=== PATIENT | female | born 1985 | race Caucasian/White ===

== ENCOUNTER → 2018-07-16 13:20 | Outpatient (CLI) | payer OTHER, SELFPAY ==
[2018-07-09 09:33] VITALS: BMI 25.7
--- NOTE | 2018-07-16 13:22 | US_ITS ---
STUDY: ULTRASOUND OF THE FEMALE PELVIS - COMPLETE REASON FOR EXAM: Female, 32 years old. Menorrhagia. LMP: June 27, 2018 TECHNIQUE: Transabdominal and Transvaginal TECHNICAL QUALITY: Adequate. COMPARISON: None. FINDINGS: The uterus is anteverted and is in a midline position. The uterus measures 9.3 x 5.4 x 4.9 cm. There is a Nabothian cyst of the cervix. The endometrium measures 16.0 mm in thickness, and is hyperechoic. There is no demonstrated endometrial mass. There is no demonstrated myometrial mass. I.U.D. - The patient does not have an I.U.D. The right ovary is visualized. The right ovary measures 2.4 x 2.6 x 1.9 cm. There is no right ovarian cyst or ovarian mass. There is no visualized right adnexal mass or complex lesion. There is normal arterial and normal venous vascularity. The left ovary is visualized. The left ovary measures 3.4 x 2.2 x 3.2 cm. There is no left ovarian cyst or ovarian mass. There is no visualized left adnexal mass or complex lesion. There is normal arterial and normal venous vascularity. There is no fluid in the cul-de-sac. Polycystic ovary disease: No. US/Transvaginal Non- IMPRESSION: Within normal limits female pelvis. Electronically Signed: Naina Recinos MD at 22:36 EDT Tel , Service support ,
--- NOTE | 2018-07-16 13:22 | US_ITS ---
STUDY: ULTRASOUND OF THE FEMALE PELVIS - COMPLETE REASON FOR EXAM: Female, 32 years old. Menorrhagia. LMP: June 27, 2018 TECHNIQUE: Transabdominal and Transvaginal TECHNICAL QUALITY: Adequate. COMPARISON: None. FINDINGS: The uterus is anteverted and is in a midline position. The uterus measures 9.3 x 5.4 x 4.9 cm. There is a Nabothian cyst of the cervix. The endometrium measures 16.0 mm in thickness, and is hyperechoic. There is no demonstrated endometrial mass. There is no demonstrated myometrial mass. I.U.D. - The patient does not have an I.U.D. The right ovary is visualized. The right ovary measures 2.4 x 2.6 x 1.9 cm. There is no right ovarian cyst or ovarian mass. There is no visualized right adnexal mass or complex lesion. There is normal arterial and normal venous vascularity. The left ovary is visualized. The left ovary measures 3.4 x 2.2 x 3.2 cm. There is no left ovarian cyst or ovarian mass. There is no visualized left adnexal mass or complex lesion. There is normal arterial and normal venous vascularity. There is no fluid in the cul-de-sac. Polycystic ovary disease: No. US/Pelvic (Non ) IMPRESSION: Within normal limits female pelvis. Electronically Signed: Naina Recinos MD at 22:36 EDT Tel , Service support ,
== END ==
PROVIDERS: Family Provider Physician Assistant Medical; PCP Physician Assistant Medical; Referring Provider Nurse Practitioner Women's Health; Visit Provider Nurse Practitioner Women's Health
DX: N92.1 Excessive and frequent menstruation with irregular cycle (principal)
CPT/HCPCS: 76830; 76856

== ENCOUNTER → 2018-07-18 16:33 | Outpatient (CLI) | payer OTHER, SELFPAY ==
[2018-07-09 09:33] VITALS: BMI 25.7
== END ==
PROVIDERS: Family Provider Physician Assistant Medical; PCP Physician Assistant Medical; Referring Provider Nurse Practitioner Women's Health; Visit Provider Nurse Practitioner Women's Health
DX: N92.1 Excessive and frequent menstruation with irregular cycle (principal)
CPT/HCPCS: 36415; 84144

== ENCOUNTER → 2018-07-20 09:16 | Outpatient (CLI) | payer OTHER, SELFPAY ==
[2018-07-09 09:33] VITALS: BMI 25.7
--- NOTE | 2018-07-20 09:22 | BI_ITS ---
MAMMOGRAPHY - BILATERAL DIAGNOSTIC REASON FOR EXAM: Female, 32 years old. [id number] for Procedure (BI),NO PRIOR MAMMS FM HX PAT GMA 60'S, LT INFERIOR PALPABLE LUMP MARKED WITH TRIANGLE R1 CM FOUND BY PT 2-3 MTHS AGO AND SLIGHTLY LARGER WITH TIME PERTINENT HISTORY: TECHNIQUE: Digital bilateral breast deanne (3D mammographic acquisition) in the CC and MLO projections. 2-D mediolateral oblique (MLO) and craniocaudad (CC) views of both breasts were obtained. CAD: Full Field Digital Mammography with Computer Added Detection was performed. 2 additional magnification views of the right breast were also performed. COMPARISON: None. FINDINGS: Breast Composition: The breasts are extremely dense, which lowers the sensitivity of mammography. There are scattered microcalcifications in the retroareolar region of the right breast for which magnification views were performed and demonstrate possible small suspicious clusters with linear shaped calcifications in the retroareolar region. Stereotactic biopsy is recommended. No other significant abnormalities are identified. BI/DIAG MAMM W/CAD, BILAT IMPRESSION: Findings suspicious for malignancy, as described above. Biopsy recommended. (H) ASSESSMENT CATEGORY: BIRADS Category 4: Suspicious - Biopsy Should Be Considered. A letter regarding these results will be sent to the patient by the facility within 30 days. Approximately 10% of breast cancers are not detected by mammography. A normal mammogram should not delay biopsy of a clinically suspicious abnormality. Electronically Signed: Mikaela Rivas, at 16:49 EDT Tel , Service support ,
--- NOTE | 2018-07-20 09:24 | US_ITS ---
STUDY: ULTRASOUND BREAST - LEFT REASON FOR EXAM: Female, 32 years old. LT LUMP mammo today TECHNIQUE: Axial and longitudinal images of the LEFT breast were performed with a high resolution ultrasound transducer. COMPARISON: None. FINDINGS: LEFT Breast: There is a lesion #1 in the lower inner quadrant. The lesion measures 1.1 x 0.9 x 0.5 cm in size. Clock notation: 7 o'clock position. Distance from nipple: 3 cm. Posterior Enhancement: Yes. Posterior Shadowing: None. Margins: Sharp and smooth. Echogenicity: Anechoic. Compression effect on Shape: No change. US/Breast Limited Unilateral IMPRESSION: Benign cyst in the left breast ASSESSMENT CATEGORY: BIRADS Category 2: Benign. A letter regarding these results will be sent to the patient by the facility within 30 days. Electronically Signed: Mikaela Rivas, at 16:37 EDT Tel , Service support ,
== END ==
PROVIDERS: Family Provider Physician Assistant Medical; PCP Physician Assistant Medical; Referring Provider Nurse Practitioner Women's Health; Visit Provider Nurse Practitioner Women's Health
DX: N60.02 Solitary cyst of left breast (principal)
CPT/HCPCS: 76642; 77062; 77066; G0279

== ENCOUNTER → 2018-08-23 10:12 | Outpatient (CLI) | payer OTHER, SELFPAY ==
[2018-08-03 09:31] VITALS: BMI 25.7
--- NOTE | 2018-08-23 | BRBX_PTH ---
PATIENT: JUNIOR PATEL LOC: [facility] U#:[id number] AGE/SX: 39/F ROOM: RE08/23/[address]: Dr. Kirsten Hernandez MD : 1985 BED: DIS: SPEC #: [id number] RECD: 08/23/18 14:24 STATUS: JAYDE RIVERA #: [id number] DARBY: 08/23/18 00:[address]: Kirsten Hernandez DEPT: SURGICAL PATHOLOGY RECD BY: Gopal Padron ENTERED: 08/23/18 14:25 SP TYPE: BREAST BX OTHR DR: QUINCY Campbell Tissues: A - Right breast, NOS B - Right breast, NOS Procedures: Surgery Specimen Level IV HEADER OPERATION: Right stereotactic breast biopsy PRE-OP DIAGNOSIS: Right breast retroareolar slightly lateral microcalcifications TISSUE SUBMITTED: A - Superior retroareolar area, B - Inferior retroareolar area ISCHEMIC TIME: 1 minute FIXATION TIME: 8 hours MICROSCOPIC DIAGNOSIS A. Right breast, superior retroareolar area, stereotactic core biopsy: Fibrocystic changes and intraductal hyperplasia without atypia. Negative for malignancy. Polarizable microcalcifications. B. Right breast, inferior retroareolar area, stereotactic core biopsy: Fibrocystic changes and intraductal hyperplasia without atypia. Focal chronic inflammation and histiocytic reaction. Negative for malignancy. See comment. SJ:rg 08/24/18 COMMENT B. Microcalcifications are not seen. Correlation with clinical, radiologic findings and appropriate follow up are necessary. MICROSCOPIC DESCRIPTION Slides are reviewed. GROSS DESCRIPTION A - Received in fixative is one container labeled with the patient's name and designated superior. The specimen consists of multiple elongated fragments of may-yellow fibroadipose tissue that in aggregate measure 3 x 2.5 x 0.3 cm. The entire specimen is submitted in one cassette. B - Received in fixative is one container labeled with the patient's name and designated inferior. The specimen consists of multiple elongated fragments of may-yellow fibroadipose tissue that in aggregate measure 2 x 1 x 0.1 cm. The entire specimen is submitted in one cassette. / SJ:rg 08/23/18 TC:5 CPT: 29601 ADDENDUM ADDENDUM ADDENDUM ADDENDUM ADDENDUM ADDENDUM ADDENDUM 08/28/2018 12:02 ADDENDUM 08/28/2018 12:02 ADDENDUM 08/28/2018 12:02 ADDENDUM 08/28/2018 12:02 ADDENDUM 08/28/2018 12:02 B. Right breast, inferior retroareolar area, stereotactic core biopsy: Additional ten levels are examined at the request of Dr. Hernandez and the specimen shows a few polarizable microcalcifications. This case is discussed with Dr. Hernandez on 08/27/18.
--- NOTE | 2018-08-23 12:43 | PCM.OPRPT ---
Report of Operation Date of Procedure: 08/23/18 Pre-Operative Diagnosis: Right retroareolar microcalcifications Post-Operative Diagnosis: Same Surgery/Procedure Performed:: Stereotactic right breast biopsy x2 Type of Anesthesia:: Local Specimen's removed: 1. Superior retroareolar breast tissue, 2. Inferior retroareolar breast tissue Estimated Blood Loss (mL): 10 cc Description of Procedure: Procedure: Right stereotactic core biopsy Indications: 32 year-old female with microcalcifications in the retroareolar aspect of the right breast. Due to the diffuse areas due to areas of sampling. Risk benefits were discussed the patient and she elected to proceed with stereotactic core biopsy with clip placement Description of procedure: Patient was brought into the mammography suite and laid prone on the stereotactic table. A timeout was completed verifying correct patient, procedure, site, specially, prior to beginning procedure. The right breast was prepped and draped in usual sterile fashion and using local anesthesia was obtained with 1% lidocaine. Patient's right breast was positioned and placed into compression. Both sample stereotactic breast biopsies were done similarly. Initial film showed calcifications are in the center of the compression paddle. 15? views were then taken. The calcifications were localized. An 10-gauge mammotome was set up according to the digital coordinates. The tract of the mammotome was anesthetized with local anesthesia and an incision was made with the 11 blade scalpel at the entry site. The mammotome was advanced to the prefire state. Pre-prior films were checked and verified. The mammotome was fired. Post fire films were also checked and verified. Biopsies were taken from from 1:00 to 12:00 for the superior retroareolar sample, and from 9:00 to 3:00 for the inferior retroareolar sample. The specimen was x-rayed and all the calcifications were within the specimen. Mammotome bowtie clip was placed at the 12 o'clock position, using the resolve clip for the superior retroareolar sample and the result petite barbell clip for the inferior retroareolar sample. The mammotome was removed from the breast. An additional films were taken which showed the clip was in place. Pressure was held for hemostasis. The superior retroareolar incision site was closed with 4-0 nylon interrupted suture and 3 cc of lidocaine with epinephrine was also placed in the incision due to oozing, after pressure was held for 15 minutes. Once hemostasis was assured the wound was dressed with Steri-Strips and OpSite. The patient tolerated the procedure well and was discharged from the mammography suite good condition. - Complications none
--- NOTE | 2018-08-23 12:48 | OP.PCM_ITS ---
Report of Operation Date of Procedure: 08/23/18 Pre-Operative Diagnosis: Right retroareolar microcalcifications Post-Operative Diagnosis: Same Surgery/Procedure Performed:: Stereotactic right breast biopsy x2 Type of Anesthesia:: Local Specimen's removed: 1. Superior retroareolar breast tissue, 2. Inferior retroareolar breast tissue Estimated Blood Loss (mL): 10 cc Description of Procedure: Procedure: Right stereotactic core biopsy Indications: 32 year-old female with microcalcifications in the retroareolar aspect of the right breast. Due to the diffuse areas due to areas of sampling. Risk benefits were discussed the patient and she elected to proceed with stereotactic core biopsy with clip placement Description of procedure: Patient was brought into the mammography suite and laid prone on the stereotactic table. A timeout was completed verifying correct patient, procedure, site, specially, prior to beginning procedure. The right breast was prepped and draped in usual sterile fashion and using local anesthesia was obtained with 1% lidocaine. Patient's right breast was positioned and placed into compression. Both sample stereotactic breast bio psies were done similarly. Initial film showed calcifications are in the center of the compression paddle. 15? views were then taken. The calcifications were localized. An 10-gauge mammotome was set up according to the digital coordinates. The tract of the mammotome was anesthetized with local anesthesia and an incision was made with the 11 blade scalpel at the entry site. The mammotome was advanced to the prefire state. Pre-prior films were checked and verified. The mammotome was fired. Post fire films were also checked and verified. Biopsies were taken from from 1:00 to 12:00 for the superior retroareolar sample, and from 9:00 to 3:00 for the inferior retroareolar sample. The specimen was x-rayed and all the calcifications were within the specimen. Mammotome bowtie clip was placed at the 12 o'clock position, using the resolve clip for the superior retroareolar sample and the result petite barbell clip for the inferior retroareolar sample. The mammotome was removed from the breast. An additional films were taken which showed the clip was in place. Pressure was held for hemostasis. The superior retroareolar incision site was closed with 4- 0 nylon interrupted suture and 3 cc of lidocaine with epinephrine was also placed in the incision due to oozing, after pressure was held for 15 minutes. Once hemostasis was assured the wound was dressed with Steri-Strips and OpSite. The patient tolerated the procedure well and was discharged from the mammography suite good condition. - Complications none
== END ==
PROVIDERS: Family Provider Physician Assistant Medical; PCP Physician Assistant Medical; Referring Provider Surgery; Visit Provider Surgery
DX: N60.11 Diffuse cystic mastopathy of right breast (principal); N60.91 Unspecified benign mammary dysplasia of right breast; R92.1 Mammographic calcification found on diagnostic imaging of breast
CPT/HCPCS: 19081; 19082; 88305; J7050

== ENCOUNTER → 2018-10-18 | Outpatient (CLI) | payer OTHER, SELFPAY ==
[2018-08-03 09:31] VITALS: BMI 25.7
[2018-10-19 11:58] LABS: Progesterone Level 11.63 ng/mL (See Comment)
== END | disposition home or self-care (01) ==
LOC: LAB 16:28
PROVIDERS: Family Provider Physician Assistant Medical; PCP Physician Assistant Medical; Referring Provider Nurse Practitioner Women's Health; Visit Provider Nurse Practitioner Women's Health
DX: Z31.9 Encounter for procreative management, unspecified (principal)
CPT/HCPCS: 36415; 84144

== ENCOUNTER → 2018-12-20 13:57 | Outpatient (CLI) | payer OTHER, SELFPAY ==
[2018-12-20 13:16] VITALS: BMI 26.3
[2018-12-20 14:20] LABS: Absolute Lymphocyte Count 1.62 X10^3/uL (0.83-4.51); Absolute Neutrophil Count 5.7 X10^3/uL (2.0-7.7); Basophil# 0.02 X10^3/uL; Basophil% 0.3 % (0-1); Eosinophil# 0.06 X10^3/uL; Eosinophils% 0.8 % (0-5); Hemoglobin 13.2 g/dL (12.0-15.0); Lymphocyte # 1.62 X10^3/ul (4.0); Lymphocyte % 20.5 % (19-41); Mean Corp Hgb Conc 33.8 g/dL (32-36); Mean Corpuscular Hgb 31.4 pg (27.0-32.0); Mean Corpuscular Volume 92.9 fL (81-99); Mean Platelet Vol. 10.5 fl (6.2-12.0); Monocyte# 0.46 X10^3/uL; Monocyte% 5.8 % (0-10); NRBC Flagged by Analyzer 0 % (0-5); Neutrophil # 5.72 X10^3/uL (2.7-7.7); Neutrophil % 72.5 % (47-70); Platelet Count 185 K/mm3 (150-450); RBC Distribution Width CV 12.4 % (11.6-14.6); RBC Distribution Width SD 42.3 fl (35.1-43.9); White Blood Count 7.9 K/mm3 (4.4-11.0)
[2018-12-20 18:18] LABS: Chlamydia Trachomatis by PCR Negative (Negative); Neisserai gonorrhoeae by PCR Negative (Negative); Probe Check PASS; Sample Adequacy Control PASS; Specimen Processing Control PASS
[2018-12-21 01:39] LABS: Rapid Plasmin Reagin (RPR) NONREACTIVE (NONREACTIVE)
[2018-12-21 09:05] LABS: HIV - WCH Non-Reactive (Nonreactive); Hepatitis B Surface Antigen Non-Reactive (Nonreactive); Rubella IgG 48.1 IU/mL
== END ==
PROVIDERS: Family Provider Physician Assistant Medical; PCP Physician Assistant Medical; Referring Provider Obstetrics & Gynecology; Visit Provider Obstetrics & Gynecology
DX: Z34.80 Encounter for supervision of other normal pregnancy, unspecified trimester (principal)
CPT/HCPCS: 36415; 85025; 86592; 86703; 86762; 86850; 86900; 86901; 87086; 87340; 87491; 87591

== ENCOUNTER → 2019-04-29 14:22 | Outpatient (CLI) | payer OTHER, SELFPAY ==
[2019-04-29 14:09] VITALS: BMI 25.7
[2019-04-29 15:22] LABS: Absolute Lymphocyte Count 1.68 X10^3/uL (0.83-4.51); Absolute Neutrophil Count 9.6 X10^3/uL (2.0-7.7); Basophil# 0.03 X10^3/uL; Basophil% 0.2 % (0-1); Eosinophil# 0.11 X10^3/uL; Eosinophils% 0.9 % (0-5); Hematocrit 34.1 % (37-47); Hemoglobin 11.2 g/dL (12.0-15.0); Lymphocyte # 1.68 X10^3/ul (4.0); Lymphocyte % 13.7 % (19-41); Mean Corp Hgb Conc 32.8 g/dL (32-36); Mean Corpuscular Hgb 31.8 pg (27.0-32.0); Mean Corpuscular Volume 96.9 fL (81-99); Mean Platelet Vol. 10.5 fl (6.2-12.0); Monocyte% 5.7 % (0-10); NRBC Flagged by Analyzer 0 % (0-5); Neutrophil # 9.63 X10^3/uL (2.7-7.7); Neutrophil % 78.6 % (47-70); Platelet Count 177 K/mm3 (150-450); RBC Distribution Width CV 13.4 % (11.6-14.6); Red Blood Count 3.52 M/mm3 (4.2-5.4); White Blood Count 12.3 K/mm3 (4.4-11.0)
[2019-04-29 15:23] LABS: Glucose Challenge Gest 1H 50g 118 mg/dL (70-140)
== END ==
PROVIDERS: Family Provider Physician Assistant Medical; PCP Physician Assistant Medical; Referring Provider Nurse Practitioner Women's Health; Visit Provider Nurse Practitioner Women's Health
DX: Z34.90 Encounter for supervision of normal pregnancy, unspecified, unspecified trimester (principal)
CPT/HCPCS: 36415; 82950; 85025; 86850; 86900; 86901

== ENCOUNTER → 2019-05-31 09:12 | Outpatient (CLI) | payer OTHER, SELFPAY ==
[2019-05-17 10:04] VITALS: BMI 25.7
--- NOTE | 2019-05-31 09:14 | US_ITS ---
STUDY: SECOND AND THIRD TRIMESTER OBSTETRICAL ULTRASOUND - LIMITED REASON FOR EXAM: Female, 33 years old GROWTH . Large for dates. LMP: October 28, 2018. PRIOR ULTRASOUND: None. TECHNIQUE: Transabdominal TECHNICAL QUALITY: Adequate. FINDINGS: There is a single intrauterine fetus. The fetus is in a cephalic presentation. There is demonstrated cardiac activity with a heart rate of 152 bpm. There is a normal amniotic fluid volume. The largest amniotic fluid pocket measures 5.9 cm. The amniotic fluid index (SINDY) is 19.1 cm. The placenta is posterior in location and is not low lying. There are Grade 1 placental changes. The cervix measures 4.3 cm in length. BIOMETRY: BPD: 8.0 cm: 32 weeks, 0 days HC: 29.6 cm: 32 weeks, 5 days AC: 28.3 cm: 32 weeks, 3 days FL: 6.5 cm: 33 weeks, 5 days Age by LMP: 30 weeks, 5 days. EMMANUELLE by LMP: August 04, 2019. age by current US: 32 weeks, 5 days. EMMANUELLE by current US: July 21, 2019. Estimated weight: 2030 grams, +/- 296 grams, 94 percentile. US/OB Limited With Biometrics IMPRESSION: Single live intrauterine gestation with a mean gestational age of 32 weeks and 5 days. Electronically Signed: Denys Leigh, at 8:35 EST , Service support ,
== END ==
PROVIDERS: PCP Physician Assistant Medical; Referring Provider Obstetrics & Gynecology; Visit Provider Obstetrics & Gynecology
DX: O36.60X0 Maternal care for excessive fetal growth, unspecified trimester, not applicable or unspecified (principal); Z3A.00 Weeks of gestation of pregnancy not specified
CPT/HCPCS: 76816

== ENCOUNTER → 2019-07-12 08:16 | Outpatient (CLI) | payer OTHER, SELFPAY ==
[2019-06-28 09:03] VITALS: BMI 25.7
--- NOTE | 2019-07-12 08:17 | US_ITS ---
STUDY: SECOND AND THIRD TRIMESTER OBSTETRICAL ULTRASOUND REASON FOR EXAM: Female, 33 years old GROWTH LMP: October 28, 2018. TECHNIQUE: Transabdominal TECHNICAL QUALITY: Adequate. PRIOR ULTRASOUND: Comparison is made with prior examination dated May 31, 2019. FINDINGS: There is a single intrauterine fetus. The fetus is in a cephalic presentation. There is demonstrated cardiac activity with a heart rate of 137 bpm. There is a normal amniotic fluid volume. The largest amniotic fluid pocket measures 4.7 cm. The amniotic fluid index (SINDY) is 13.8 cm. The placenta is fundal in location. There are Grade 2 placental changes. The cervix measures 4.9 cm in length. The adnexal regions are not visualized. BIOMETRY: BPD: 9.25 cm: 37 weeks, 4 days HC: 34.10 cm: 39 weeks, 1 days AC: 36.32 cm: 40 weeks, 1 days FL: 7.48 cm: 38 weeks, 1 days CI: 80% FL/BPD: 81% FL/HC: FL/AC: 21% HC/AC: 0.94 age by current US: 38 weeks, 5 days. EMMANUELLE by current US: July 21, 2019. Estimated weight: 3764 grams, +/- 557 grams, 97 %. age by prior US: 38 weeks, 5 days. EMMANUELLE by prior US: July 21, 2019. Age by LMP: 36 weeks, 5 days. EMMANUELLE by LMP: August 04, 2019. US/OB Limited With Biometrics IMPRESSION: Single live intrauterine gestation with a mean gestational age of 38 weeks and 5 days. The weight is within the 97th percentile. Electronically Signed: Denys Leigh, at 9:57 EDT , Service support ,
== END ==
PROVIDERS: PCP Physician Assistant Medical; Referring Provider Obstetrics & Gynecology; Visit Provider Obstetrics & Gynecology
DX: O36.63X0 Maternal care for excessive fetal growth, third trimester, not applicable or unspecified (principal); Z3A.36 36 weeks gestation of pregnancy
CPT/HCPCS: 76816; 87081

== ENCOUNTER 2019-07-29 07:00 | Inpatient (IN) | payer OTHER, SELFPAY ==
[2019-07-26 09:21] VITALS: BMI 25.7
[2019-07-29] VITALS (62 sets, daily range): BP systolic 102–136; BP diastolic 55–96; PULSE 82–171; RESP 14–18; TEMP 36.3–37.2; O2SAT 82–100; BMI 33.7
[2019-07-29] MEDS: Lactated Ringers 1,000 ML 50 ML IV (07:30)
[2019-07-29 07:50] LABS: Basophil# 0.02 X10^3/uL; Basophil% 0.2 % (0-1); Hematocrit 34.4 % (37-47); Hemoglobin 11.4 g/dL (12.0-15.0); Lymphocyte % 15.2 % (19-41); Mean Corp Hgb Conc 33.1 g/dL (32-36); Mean Corpuscular Hgb 31.8 pg (27.0-32.0); Mean Corpuscular Volume 96.1 fL (81-99); Mean Platelet Vol. 11.2 fl (6.2-12.0); Monocyte# 0.74 X10^3/uL; NRBC Flagged by Analyzer 0 % (0-5); Neutrophil # 7.96 X10^3/uL (2.7-7.7); Neutrophil % 75.6 % (47-70); Platelet Count 164 K/mm3 (150-450); RBC Distribution Width CV 14.5 % (11.6-14.6); RBC Distribution Width SD 49.5 fl (35.1-43.9); Red Blood Count 3.58 M/mm3 (4.2-5.4); White Blood Count 10.5 K/mm3 (4.4-11.0)
[2019-07-29] MEDS: Oxytocin 30 units/NS 500 ml 30 UNITS/500 ML IV.SOLN IV (08:00)
--- NOTE | 2019-07-29 08:40 | HP.PCM_ITS ---
- Problem List (1) History of recurrent miscarriages Status: Acute (2) Influenza vaccine administered Status: Acute (3) Large for gestational age fetus Status: Acute Comment: h/o macrosomia. repeat growth at 36 weeks, plan IOL only if EFW approaching 5000g (4) Status: Acute Qualifiers: Comment: genetic, carrier and ntd screening declined. normal anatomy (5) Rh negative state in antepartum period Status: Acute Comment: rhogam at 28 weeks. (6) Supervision of normal Status: Acute Qualifiers: Comment: PRR EMMANUELLE 08/04/19 surprise PC Margret Mcdermott Zachariah History and Physical Date of Admission: 07/29/19 Intake Vital Signs 07/26/19 Height 5 ft 7 in 07/26/19 Weight: 221 lb 07/26/19 BMI 34.6 07/26/19 BP 114/78 Intake Visit Reasons: 38 WK OB Chief Complaint: est ob Employment Clerk Required: No Is patient in pain?: No Allergies No Known Allergies Allergy (Verified 07/26/19 09:20) Medications vitamin#30 30 mg iron-10 mg iron-folic acid 1 mg-omg3 capsule cap PO cap 01/01/19 [History Confirmed 07/26/19] Last Menstral Period: 11/12/18 Zika: Zika virus screening: Negative : No PFSH PFSH Medical History Abnormal mammogram of right breast (Acute) Surgical History No history of previous surgery (Acute) Family History Grandmother Diabetes Breast cancer Colon cancer Grandfather Colon cancer Mother Colon cancer Father Heart disease Asthma Hypertension High cholesterol Sister Asthma Social History (Updated 07/26/19 @ 09:[address] 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 Date Name GA/Weeks Outcome Route Bth Weight Infant Gen Labor Lgth Anesthesia Del Locatn Provider FOB 02/01/11 Sharron 40 live - full term 9lbs 4oz Female 1 7 hours epidural [facility] Dr. Petra Soni 11/16/12 Margret 40 live - full term 9lbs 3oz Female [address] [place] [address] David Soni Delivery Date: 02/01/11 On 07/09/18 @ 09:31 Amber Dennis No issues during or delivery. Delivery Date: 11/16/12 On 07/09/18 @ 09:33 Amber Dennis No issues during or delivery. HPI 38 WK OB: Details: JUNIOR PATEL is a 33 year old who presents for IOL secondary to macrosomia. EFW 8 1/2-9 lbs. OB Visit EMMANUELLE Calculator Estimated Delivery Date Method Current WG Current Estimate 08/04/19 LMP (Certain) 38w 5d Expected Delivery Route/Plan Labor Preferences- labor support person: Zachariah pain management options preferred: epidural cut cord/dad catch: cord : yes PP control planned: [] discussed possible routes of delivery and associated risks: [] special requests: [] Specific Issue/Plans flu vaccine: given tdap vaccine: given rhogam: given 05/17 movement and labor precautions reviewed. LARC form signed: yes Problem list reviewed and updated with the most current plan of care details and appropriate orders placed. Relevant counseling for the gestational age provided. Continue routine care and follow up unless otherwise noted in visit notes/problem list details Initial Weight: 165 lb Date EGA Weight BP Urine Prot Glucose FHR FuHt Pres Dilation Effaced St Visit Note 01/01/19 9w 2d 167 lb (+2 lb) 102/64 175 subchorionic hemorrhage resolving 01/25/19 12w 5d 174 lb (+9 lb) 110/72 Negative Negative 160 02/22/19 16w 5d 183 lb 4 oz (+18 lb 4 oz) 102/56 Negative Negative 150 04/01/19 22w 1d 190 lb 6 oz (+25 lb 6 oz) 100/60 Negative Negative 147 Good Fm. NO Vb LOF. Wants flu vaccine today 04/29/19 26w 1d 200 lb 3.2 oz (+35 lb 3.2 oz) 120/72 Negative Negative 141 26 Good Fm. NO VB, LOF. Tdap and 28 wk labs. 05/17/19 28w 5d 206 lb (+41 lb) 106/70 Negative Negative 145 33 SM- no vb lof good fm no regular ctx rhogam today. get growth us 06/14/19 32w 5d 212 lb (+47 lb) 130/80 Negative Negative 140 SM- no vb lof good fm no regular ctx discussed LGA recommend spontaneous labor 06/28/19 34w 5d 215 lb (+50 lb) 118/76 Negative Negative 145 38 Cephalic SM- no vb lof good fm no regular ctx 07/12/19 36w 5d 219 lb 9 oz (+54 lb 9 oz) 124/76 Negative Negative 140 39 Cephalic 1 SM- no vb lof good fm no regular ctx 07/19/19 37w 5d 218 lb (+53 lb) 116/62 Negative Negative 140 45 Cephalic 2 SM- no vb lof good fm no regular ctx 07/26/19 38w 5d 221 lb (+56 lb) 114/78 Negative Negative 140 45 Cephalic 3 50 -2 SM- no vb lof fm no regul ar ctx plan IOL 39 weeks Notes Visit Date: 07/26/19 ??No visit notes to display Visit Date: 07/19/19 ??No visit notes to display Visit Date: 07/12/19 ??No visit notes to display Visit Date: 06/28/19 ??No visit notes to display Visit Date: 06/14/19 ??No visit notes to display Visit Date: 05/17/19 ??No visit notes to display Visit Date: 04/29/19 ??No visit notes to display Visit Date: 04/01/19 ??Good Fm. NO Vb LOF. Wants flu vaccine today ??MAGUE Reina on 04/01/19 Visit Date: 02/22/19 ??No visit notes to display Visit Date: 01/25/19 ??No visit notes to display Visit Date: 01/01/19 ??subchorionic hemorrhage resolving ??Cinthya Solorio MD on 01/02/19 ACOG First Trimester First Trimester: Second Trimester Second Trimester: Signs and Symptoms of Labor, Selecting a care provider, Reproductive Life Planning, Care Planning, Tobacco Cessation, Depression/Anxiety and Intimate Partner Violence Third Trimester Third Trimester: Pain Management Plans, Labor support person(s), Immediate Larc, Movement Monitoring and Infant Feeding Yes ; discussed Trial of Labor after Counseling or discussed Circumcision preference Diagnostics Diagnostics Diagnostics Blood Type B NEGATIVE 04/29/19 Antibody Screen NEGATIVE 04/29/19 Glucose 1 Hr 50 gm 118 mg/dL (70-140) 04/29/19 HIV 1&2 Antibody Non-Reactive (Nonreactive) 12/20/18 Rubella IgG Antibody 48.1 IU/mL 12/20/18 Hgb 11.2 g/dL (12.0-15.0) L 04/29/19 Hct 34.1 % (37-47) L 04/29/19 RPR NONREACTIVE (NONREACTIVE) 12/20/18 Details: HIV: Urine Culture: Sequential Screen: NIPT Screen: ROS Const Reports system reviewed and no additional complaints, except as docu Card Reports system reviewed and no additional complaints, except as docu Resp Reports system reviewed and no additional complaints, except as docu GI Reports system reviewed and no additional complaints, except as docu, Reports nausea Reports system reviewed and no additional complaints, except as docu Musc Reports system reviewed and no additional complaints, except as docu Exam Const General: cooperative, healthy appearing, comfortable, anxious [facility] Head: normal to inspection Nose: external nose normal Face and sinus: normal facial exam Neck Neck: normal visual inspection, full ROM, no lymphadenopathy Thyroid: thyroid normal Chest Chest palpation & inspection: normal inspection of the chest Resp Effort & Inspection: normal respiratory effort GI Inspection: normal to inspection Palpation: soft, other (gravid uterus) Other: infant vertex and large size for gestational age Other: Cervical Exam: Extrem General: pedal edema Results POC Urinalysis 2 Dip (Clinic) Office Urine Glucose Negative Last Edit by Dot Henriquez on 07/26/19 09:2 2 Office Urine Protein Negative Last Edit by Dot Henriquez on 07/26/19 09:2 2 Assessment & Plan Problems 1. Large for gestational age fetus 2. Influenza vaccine administered Z23 3. 38 weeks gestation of Z3A.38 4. History of recurrent miscarriages N96 5. Encounter for supervision of other normal in second trimester Z34.82 6. Rh negative state in antepartum period O26.899; Z67.91 plan IOL with pitocin, epidural PRN gbs neg Orders Orders: POC Urinalysis 2 Dip (Clinic) Today Coding Level of Care Code OB Routine Diagnoses Large for gestational age fetus Influenza vaccine administered Z23 38 weeks gestation of Z3A.38 ??Weeks of gestation: 38 weeks History of recurrent miscarriages N96 Encounter for supervision of other normal in second trimester Z34.82 ??Normal : other normal ??Trimester: second trimester Rh negative state in antepartum period O26.899; Z67.91
[2019-07-29] MEDS: Lactated Ringers 500 ML 999 ML IV (12:14)
[2019-07-29] MEDS: fentaNYL-bupivacaine (epidural) 100 ML BAG EPIDURAL (13:43)
--- NOTE | 2019-07-29 16:45 | PCM.OPRPT ---
Problem List (1) History of recurrent miscarriages Status: Acute (2) Influenza vaccine administered Status: Acute (3) Large for gestational age fetus Status: Acute Comment: h/o macrosomia. repeat growth at 36 weeks, plan IOL only if EFW approaching 5000g (4) Status: Acute Qualifiers: Comment: genetic, carrier and ntd screening declined. normal anatomy (5) Rh negative state in antepartum period Status: Acute Comment: rhogam at 28 weeks. (6) Supervision of normal Status: Acute Qualifiers: Comment: PRR EMMANUELLE 08/04/19 surprise PC Margret Mcdermott Zachariah Vaginal Delivery Maternal Presentation: Medically Indicated Induction iol macrosomia Method of Induction: Pitocin Amniotic Membrane Rupture Type: Artificial Amniotic Fluid Description: Clear Final EMMANUELLE: 08/04/19 Gestational age: 39 Weeks and 1 Days Date of Procedure: 07/29/19 Pre-Operative Diagnosis: iol macrosomia Post-Operative Diagnosis: same Surgery/ Procedure Performed: Spontaneous Vaginal Delivery Type of Anesthesia: Epidural Description of Procedure: Patient began pushing and delivered the head in the AIMEE presentation. The head was delivered atraumatically and a tight nuchal cord x2 was identified and the hand delivered of the posterior arm and the tight nuchal cord was limiting delivery of the . Posterior arm was delivered sweeping forward and then after the anterior shoulder was delivered the cord was clamped and cut on the perineum due to entrapment of the body due to the cord. the rest of the and the was placed on the maternal abdomen. Delayed cord clamping was employed for approximately 60 seconds. Cord was clamped and cut and gentle traction was applied to the cord and the placenta delivered spontaneously immediately following it was noted to be intact with three-vessel cord. The perineum and vagina were inspected and noted to have no laceration. EBL was 100 cc. Patient and infant tolerated delivery well. Placental Delivery Description: Spontaneous Placenta Disposition: [facility] Cord Vessel Description: 3 Vessels Cord Entanglement: Around neck x 2, tight Estimated Blood Loss: 100 A gender: Male Episiotomy Description: None Laceration: None Medications given after delivery: IV Pitocin Complications: None Multi Select Codes - Urinary/Genital Urinary/Genital CPT Codes: 11697 Vaginal Delivery [facility]
[2019-07-29] MEDS: Oxytocin 30 units/NS 500 ml 30 UNITS/500 ML IV.SOLN 334 UNITS IV (16:58)
[2019-07-30] VITALS (8 sets, daily range): BP systolic 117–133; BP diastolic 61–76; PULSE 94–113; RESP 16–18; TEMP 36.6–37; O2SAT 98
[2019-07-30] MEDS: Naproxen 250 MG Tablet 500 MG PO (04:23)
--- NOTE | 2019-07-30 06:34 | PN.OBGYN_ITS ---
Subjective: doing well no complaints pain controlled no CP SOB N V ambulating well tolerating po lochia moderate, going well - Physical Exam Vitals/I&O's: Vital Signs Temp Pulse Resp BP Pulse Ox 98.1 F 99 18 133/61 H 100 07/30/19 03:46 07/30/19 03:46 07/30/19 03:46 07/30/19 03:46 07/29/19 19:07 Oxygen Delivery Method Room Air Weight: 215 lb 9.793 oz Body Mass Index (BMI) 33.7 Intake and Output for Last 24 Hours 07/28/19 07/29/19 07/30/19 23:59 23:59 23:59 Intake Total 2291.13 / 2291.13 Output Total 500 / 500 1000 / 1000 Balance 1791.13 / 1791.13 -1000 / -1000 General: Alert, Oriented x3 Laboratory Results 07/29/19 07:30: WBC 10.5, RBC 3.58 L, Hgb 11.4 L, Hct 34.4 L, MCV 96.1, MCH 31.8, MCHC 33.1, RDW Std Deviation 49.5 H, RDW Coeff of Anna 14.5, Plt Count 164, MPV 11.2, Immature Gran % (Auto) 1.000 H, Neut % (Auto) 75.6 H, Lymph % (Auto) 15.2 L, [place] % (Auto) 7.0, Eos % (Auto) 1.0, Baso % (Auto) 0.2, Absolute Neuts (auto) 8.0 H, Absolute Lymphs (auto) 1.60, Nucleated RBC % 0 07/29/19 07:30: Blood Type B NEGATIVE, Antibody Screen NEGATIVE 07/30/19 00:15: Screen NEGATIVE, Baby's Blood Type B POSITIVE, Baby's PERFECTO NEGATIVE Current Medications Acetaminophen (Tylenol) 1,000 mg PO Q8H PRN PRN PRN Reason: Pain Score 1-3/10 Bisacodyl (Dulcolax) 10 mg RECTAL UD PRN PRN Reason: If no BM Dibucaine (Dibucaine) 1 applic TOPICAL TID PRN PRN; Protocol PRN Reason: Discomfort Hydrocortisone (Hytone) 1 applic TOPICAL TID PRN PRN; Protocol PRN Reason: Discomfort Methylergonovine Maleate (Methergine) 0.2 mg IM X1 PRN PRN Reason: Excess bleeding/uterine atony Naproxen (Naprosyn) 500 mg PO Q8H PRN PRN PRN Reason: Pain Score 1-3/10 Last Admin: 07/30/19 04:23 Dose: 500 mg Documented by: Ondansetron HCl (Zofran) 4 mg IV Q4H PRN PRN PRN Reason: Nausea Oxycodone HCl (Oxyir) 5 - 10 mg PO Q4H PRN PRN PRN Reason: Pain Score 4-10/10 Senna/Docusate Sodium (Senokot-S, Mable-Colace) 1 - 2 tablet PO DAILY PRN PRN PRN Reason: Constipation Simethicone (Mylicon) 80 mg PO PCHS PRN PRN Reason: Indigestion/Stomach pain Sodium Chloride () 5 - 15 ml IV UD PRN PRN Reason: SALINE FLUSH Medical Necessity - Tobacco Use Smoking Status: Never smoker Assessment/Plan All Active Problems (Last Reviewed 07/26/19 @ 09:20 by Dot Henriquez) Large for gestational age fetus (Acute) Influenza vaccine administered (Acute) (Acute) History of recurrent miscarriages (Acute) Supervision of normal (Acute) Rh negative state in antepartum period (Acute) s/p PPD # 1 1. routine post delivery care 2. breast feeding- support given 3. rh negative- rhogam PRN 4. rubella immune
--- NOTE | 2019-07-30 06:36 | DCINST_ITS ---
Discharge Diet: No Restrictions Discharge Activity: Return to Normal Activity, May not drive while taking narcotic pain medications., May Shower May resume sexual activity in: 4-6 weeks Call your doctor if your incision/area has: Continuous Slow Oozing, Sudden Increased Bleeding, Increased Pain/ Swelling, Increased Redness, Foul Smelling Discharge Additional Instructions: If you experience any of the following, contact your healthcare provider. * Bleeding that soaks a pad every hour for 2 hours * Fever 100.4 or higher * Unrelieved incision or abdominal pain * Swelling, redness, discharge or bleeding from your incision or episiotomy site * Your incision begins to separate * Problems urinating (including inability to urinate or burning while urinating). * Visual changes * Severe headache * Flu-like symptoms * Pain or redness in one of both of your breasts * Pain, warmth, tenderness or swelling in your legs, especially the calf area * Frequent nausea and vomiting * Symptoms of depression or anxiety If you experience any of the following, call 911 or go to the nearest Emergency Room. * Chest pain * Problems breathing * Seizure activity * Partial or complete paralysis of a body part, slurred speech, weakness or drooping of the face, or a sudden inability to walk or hold your balance Allergies/Adverse Reactions: Allergies No Known Allergies Allergy (Verified 07/29/19 07:29) Medications to take at Discharge vitamin#30 30 mg iron-10 mg iron-folic acid 1 mg-omg3 capsule 1 cap PO DAILY cap 01/01/19 Naproxen [Naprosyn] 250 - 500 mg PO Q8H PRN PRN #30 tab 07/30/19 The following prescriptions were given: Naproxen [Naprosyn] 250 - 500 mg PO Q8H PRN PRN #30 tab PRN Reason: MILD PAIN Transmission Status: Pending to [facility] Please Follow Up With: Cinthya Solorio MD - [phone] When: Call to make an appointment with your doctor in 6 weeks. If you had elevated Blood pressure or 4th degree laceration you will need to be seen in 2 weeks. Primary Care Physician: Chata Matta PA [Primary Care Provider] - Test Results: Test results from this visit will be discussed in further detail at your follow- up appointment, if applicable.
--- NOTE | 2019-07-30 06:36 | PCM.DCVAG ---
Discharge Diet: No Restrictions Discharge Activity: Return to Normal Activity, May not drive while taking narcotic pain medications., May Shower May resume sexual activity in: 4-6 weeks Call your doctor if your incision/area has: Continuous Slow Oozing, Sudden Increased Bleeding, Increased Pain/ Swelling, Increased Redness, Foul Smelling Discharge Additional Instructions: If you experience any of the following, contact your healthcare provider. Bleeding that soaks a pad every hour for 2 hours Fever 100.4 or higher Unrelieved incision or abdominal pain Swelling, redness, discharge or bleeding from your incision or episiotomy site Your incision begins to separate Problems urinating (including inability to urinate or burning while urinating). Visual changes Severe headache Flu-like symptoms Pain or redness in one of both of your breasts Pain, warmth, tenderness or swelling in your legs, especially the calf area Frequent nausea and vomiting Symptoms of depression or anxiety If you experience any of the following, call 911 or go to the nearest Emergency Room. Chest pain Problems breathing Seizure activity Partial or complete paralysis of a body part, slurred speech, weakness or drooping of the face, or a sudden inability to walk or hold your balance Allergies/Adverse Reactions: Allergies No Known Allergies Allergy (Verified 07/29/19 07:29) Medications to take at Discharge vitamin#30 30 mg iron-10 mg iron-folic acid 1 mg-omg3 capsule 1 cap PO DAILY cap 01/01/19 Naproxen [Naprosyn] 250 - 500 mg PO Q8H PRN PRN #30 tab 07/30/19 The following prescriptions were given: Naproxen [Naprosyn] 250 - 500 mg PO Q8H PRN PRN #30 tab PRN Reason: MILD PAIN Transmission [facility]: [facility] Please Follow Up With: Cinthya Solorio MD - [phone] When: Call to make an appointment with your doctor in 6 weeks. If you had elevated Blood pressure or 4th degree laceration you will need to be seen in 2 weeks. Primary Care Physician: Chata Matta PA [Primary Care Provider] - Test Results: Test results from this visit will be discussed in further detail at your follow-up appointment, if applicable.
[2019-07-30] MEDS: Senna/Docusate Sodium 1 Tablet PO (17:22)
== END 2019-07-30 18:20 | disposition home or self-care (01) | DRG 807 ==
PROVIDERS: Admitting Provider Obstetrics & Gynecology; PCP Physician Assistant Medical; Visit Provider Obstetrics & Gynecology
DX: O69.1XX0 Labor and delivery complicated by cord around neck, with compression, not applicable or unspecified (principal); Z37.0 Single live birth; O36.63X0 Maternal care for excessive fetal growth, third trimester, not applicable or unspecified; Z3A.39 39 weeks gestation of pregnancy; O26.23 Pregnancy care for patient with recurrent pregnancy loss, third trimester
CPT/HCPCS: 59025; 59050; 85025; 85461; 86850; 86900; 86901; 90384; 99218; J7120; G0378; J2790

== ENCOUNTER → 2020-12-25 09:00 | Outpatient (CLI) | payer OTHER, SELFPAY ==
--- NOTE | 2020-12-25 09:05 | BI_ITS ---
MAMMOGRAPHY - BILATERAL DIAGNOSTIC REASON FOR EXAM: Female, 34 years old. Two-month history of right retroareolar pain. PERTINENT HISTORY: Grandmother with breast cancer. Prior right stereotactic breast biopsy for calcification. TECHNIQUE: Digital bilateral breast deanne (3D mammographic acquisition) in the CC and MLO projections. 2-D mediolateral oblique (MLO) and craniocaudad (CC) views of both breasts were obtained. CAD: Full Field Digital Mammography with Computer Added Detection was performed. COMPARISON: Comparison is made with prior study of 07/20/2018. FINDINGS: Breast Composition: The breasts are extremely dense, which lowers the sensitivity of mammography. There are no dominant masses or suspicious calcifications. The patient is status post stereotactic biopsy with clip placement in the retroareolar region of the right breast. The number of the microcalcifications have decreased as compared to prior study. No other significant abnormalities are identified. BI/DIAG MAMM W/CAD, BILAT IMPRESSION: Status post stereotactic biopsy of the retroareolar region of the right breast with interval decrease in the number of the microcalcifications. With the patient''s history of right retroareolar pain, correlation with ultrasound is recommended. ASSESSMENT CATEGORY: BIRADS Category 0: Incomplete. Need additional imaging evaluation. A letter regarding these results will be sent to the patient by the facility within 30 days. Approximately 10% of breast cancers are not detected by mammography. A normal mammogram should not delay biopsy of a clinically suspicious abnormality. Electronically Signed: Denys Leigh MD at 10:19 EDT , Service support ,
--- NOTE | 2020-12-25 09:41 | US_ITS ---
STUDY: ULTRASOUND BREAST - RIGHT REASON FOR EXAM: Female, 34 years old. Retroareolar breast pain. TECHNIQUE: Axial and longitudinal images of the RIGHT breast were performed with a high resolution ultrasound transducer. # OF IMAGES: 40 COMPARISON: Comparison is made with prior mammogram than earlier today. FINDINGS: RIGHT Breast: The retroareolar region was examined by ultrasound. No sonographic and amount is seen. US/Breast Limited Unilateral IMPRESSION: No sonographic abnormality is seen. ASSESSMENT CATEGORY: BIRADS Category 1: Negative. A letter regarding these results will be sent to the patient by the facility within 30 days. Electronically Signed: Denys Leigh MD at 11:54 EDT , Service support ,
== END ==
PROVIDERS: PCP Nurse Practitioner Family; Referring Provider Surgery; Visit Provider Surgery
DX: N64.4 Mastodynia (principal)
CPT/HCPCS: 76642; 77062; 77066; G0279

== ENCOUNTER → 2021-03-15 14:03 | Outpatient (CLI) | payer OTHER, SELFPAY ==
[2021-03-22 13:30] LABS: HPV APTIMA, High Risk Negative (Negative)
== END ==
PROVIDERS: Referring Provider Nurse Practitioner Women's Health; Visit Provider Chiropractor
DX: M54.51 Vertebrogenic low back pain (principal)
CPT/HCPCS: 87624; 88175; G0145

== ENCOUNTER → 2023-01-06 | Outpatient (CLI) | payer OTHER, BC, SELFPAY ==
--- NOTE | 2023-01-06 13:50 | BI_ITS ---
MAMMOGRAPHY - BILATERAL SCREENING REASON FOR EXAM: Female, 37 years old. Routine annual screening examination. PERTINENT HISTORY: Grandmother with breast cancer. Prior right stereotactic breast biopsy. TECHNIQUE: Digital bilateral breast gretchen (3D mammographic acquisition) in the CC and MLO projections. 2-D mediolateral oblique (MLO) and craniocaudad (CC) views of both breasts were obtained. CAD: Full Field Digital Mammography with Computer Added Detection was performed. COMPARISON: Comparison is made with prior study dated December 25, 2020 and July 20, 2018. FINDINGS: Breast Composition: The breasts are extremely dense, which lowers the sensitivity of mammography. There are no dominant masses or suspicious calcifications. Once again, tissue markings are seen in the lateral retroareolar region of the right breast. No other significant abnormalities are identified. There has been no significant change since the prior study. BI/SCRN MAMM (CAD)W/GRETCHEN BILAT IMPRESSION: Stable bilateral screening mammogram. Yearly follow-up mammogram recommended. (A) ASSESSMENT CATEGORY: BIRADS Category 2: Benign. A letter regarding these results will be sent to the patient by the facility within 30 days. Approximately 10% of breast cancers are not detected by mammography. A normal mammogram should not delay biopsy of a clinically suspicious abnormality. [id number] Electronically Signed: Denys Leigh MD at 14:45 EDT ,
--- NOTE | 2023-01-06 14:14 | US_ITS ---
EXAM: US PELVIS TRANSABDOMINAL AND TRANSVAGINAL, COMPLETE CLINICAL INDICATION: AUB TECHNIQUE: Transabdominal and transvaginal pelvic ultrasound was performed with grayscale and color Doppler imaging. Transvaginal imaging was used for better evaluation of the endometrium and adnexa. COMPARISON: No relevant prior studies available. FINDINGS: UTERUS/CERVIX: Nabothian cysts are identified. Anteverted. There is no uterine mass. The uterus measures 8.9 x 5.5 x 4.0 cm. The endometrial stripe measures 0.1 cm in thickness. RIGHT OVARY: No significant abnormality. Blood flow is present in the right ovary. The right ovary measures 2.5 x 2.2 x 2.0 cm. LEFT OVARY: No significant abnormality. Blood flow is present in the left ovary. The left ovary measures 2.8 x 1.9 x 1.4 cm. FREE FLUID: None. BLADDER: The urinary bladder appears normal. US/Pelvic w/ Transvaginal IMPRESSION: No acute findings in the pelvis. Electronically Signed: Brady Baird DO at 21:40 EDT ,
== END | disposition home or self-care (01) ==
PROVIDERS: Referring Provider Obstetrics & Gynecology; Visit Provider Obstetrics & Gynecology
DX: Z12.31 Encounter for screening mammogram for malignant neoplasm of breast (principal)
CPT/HCPCS: 76830; 76856; 77063; 77067

== ENCOUNTER → 2023-02-24 | Outpatient (CLI) | payer OTHER, SELFPAY ==
--- NOTE | 2023-02-24 17:00 | EMB_PTH ---
PATIENT: JUNIOR PATEL LOC: [facility] U#:[id number] AGE/SX: 37/F ROOM: RE02/24/[address]: Dr. Yu Amanda DO : 1985 BED: DIS: 02/24/2023 SPEC #: [id number] RECD: 02/24/23 17:27 STATUS: JAYDE NICOLE #: [id number] DARBY: 02/24/23 17:[address]: Yu Amanda DEPT: SURGICAL PATHOLOGY RECD BY: Adali Scales ENTERED: 02/27/23 07:53 SP TYPE: ENDOM BX/C MADDIE DR: No Primary Care Phys Tissues: Endometrium, NOS Procedures: Surgery Specimen Level IV HEADER OPERATION: Endometrial biopsy PRE-OP DIAGNOSIS: Abnormal uterine bleeding TISSUE SUBMITTED: Endometrial lining MICROSCOPIC DIAGNOSIS Endometrium, biopsy: Secretory endometrium. AM:esther 02/28/2023 MICROSCOPIC DESCRIPTION Slides are reviewed. GROSS DESCRIPTION Received is one container labeled with the patient's name and not further designated. The specimen consists of multiple irregular fragments of pink soft tissue that in aggregate measure 2.5 x 2.0 x 0.2 cm. The specimen is totally submitted in one cassette. / SJ:esther 02/27/2023 TC:5 CPT: 27823
== END | disposition home or self-care (01) ==
PROVIDERS: Visit Provider Obstetrics & Gynecology
DX: N93.9 Abnormal uterine and vaginal bleeding, unspecified (principal)
CPT/HCPCS: 88305

== ENCOUNTER 2023-05-23 05:13 | Day surgery (SDC) | payer OTHER, SELFPAY ==
[2023-05-15 11:04] LABS: Hematocrit 37.7 % (37-47); Hemoglobin 12.4 g/dL (12.0-15.0); Mean Corp Hgb Conc 32.9 g/dL (32-36); Mean Corpuscular Hgb 30.2 pg (27.0-32.0); Mean Platelet Vol. 11.1 fl (6.2-12.0); Platelet Count 230 K/mm3 (150-450); RBC Distribution Width CV 13.3 % (11.6-14.6); White Blood Count 5.3 K/mm3 (4.4-11.0)
[2023-05-15 11:05] LABS: NATERA MAILED SPECIMEN
[2023-05-15 11:16] LABS: Magnesium 2.2 mg/dL (1.6-2.6)
[2023-05-15 11:31] LABS: Vitamin D,25 Hydroxy 41.7 ng/mL
[2023-05-15 12:19] LABS: Cholesterol 151 mg/dL (200); High Density Lipoprotein 60 mg/dL; Thyroid Stim Hormone (TSH) 1.02 uIU/mL (0.358-3.74); Triglycerides 50 mg/dL; Very Low Density Lipoprotein 10 mg/dL (5-40)
[2023-05-15 19:42] LABS: Hemoglobin A1c 4.8 % (3.8-5.6)
[2023-05-23] VITALS (10 sets, daily range): BP systolic 92–111; BP diastolic 48–64; PULSE 60–83; RESP 14–18; TEMP 36.2–37.1; O2SAT 97–100; BMI 27.7
[2023-05-23 05:56] LABS: Internal QC Validated? YES +Cl - CLEAR BKGD; Pregnancy, Urine Negative Negative
[2023-05-23] MEDS: Lactated Ringers 1,000 ML 15 ML IV ×2 (06:01→10:28)
[2023-05-23] MEDS: dexAMETHasone 4 MG/ML Vial 8 MG IV (06:02)
[2023-05-23] MEDS: Acetaminophen 500 MG Tablet 1000 MG PO (06:02)
[2023-05-23] MEDS: Celecoxib 200 MG Capsule 400 MG PO (06:02)
[2023-05-23] MEDS: Magnesium 1 GM over 15 mins IV (06:03)
[2023-05-23] MEDS: Gabapentin 600 MG Tablet PO (06:03)
[2023-05-23] MEDS: Phenazopyridine 95 MG Tablet 190 MG PO (06:03)
[2023-05-23 06:29] LABS: Bedside Glucose 77 mg/dL (74-106)
--- NOTE | 2023-05-23 07:30 | HYST_PTH ---
PATHOLOGY RESULTS PATIENT: JUNIOR PATEL LOC: [facility] [place] U#:[id number] AGE/SX: 37/F ROOM: RE05/23/[address]: Dr. Yu Amanda DO : 1985 BED: DIS: 05/23/2023 SPEC #: [id number] RECD: 05/23/23 12:13 STATUS: JAYDE NICOLE #: [id number] DARBY: 05/23/23 07:[address]: Yu Amanda DEPT: SURGICAL PATHOLOGY RECD BY: Adali Scales ENTERED: 05/23/23 12:13 SP TYPE: HYSTERECT OTHR DR: Dr. Freddy Reardon, QUINCY Nguyễn Tissues: Uterus, NOS Procedures: Surgery Specimen Level V HEADER OPERATION: ERAS, lap robotic hysterectomy, bilateral salpingectomy, cystoscopy PRE-OP DIAGNOSIS: Pelvic pain, abnormal uterine bleeding TISSUE SUBMITTED: Cervix, uterus, bilateral fallopian tubes MICROSCOPIC DIAGNOSIS Uterus, hysterectomy: Cervix - squamous metaplasia, chronic inflammation and nabothian cysts. Endometrium - secretory endometrium. Myometrium - superficial adenomyosis. Right fallopian tube - No pathologic change. Left fallopian tube - benign paratubal cysts. AM:esther 05/24/2023 MICROSCOPIC DESCRIPTION Slides are reviewed. GROSS DESCRIPTION Received in fixative is one container labeled with the patient's name and designated uterus, cervix, bilateral fallopian tubes. The specimen consists of a hysterectomy specimen consisting of uterus with cervix and attached bilateral fallopian tubes. The uterus with cervix weighs 126 gm and measures 10.0 x 6.5 x 5.0 cm. The serosal surface is may, glistening. The ectocervical mucosa is unremarkable. The external os is oval and patulous in contour. The endocervical canal measures 3.5 cm in length and the endocervical mucosa is unremarkable. The triangular endometrial cavity measures 5.0 cm in length and up to 3.5 cm in width. The endometrium is may, glistening, focally congested without any mass lesion and measures up to 1.0 cm in thickness. Sections of the uterine wall do not reveal any mass lesion and measures up to 2.5 cm in thickness. The right fallopian tube measures 6.0 cm in length and 0.7 cm in diameter. The fimbrial end is identified. Sections reveal unremarkable cut surfaces. Two paratubal cysts are present measuring 0.6 and 0.7 cm in greatest dimension. The left fallopian tube measures 6.5 cm in length and 0.7 cm in diameter. The fimbrial end is identified. Sections reveal unremarkable cut surfaces. Punchboard Stuffer sections are submitted in eight cassettes as follows: 1 - anterior cervix, 2 - posterior cervix, 3 & 4 - anterior uterine wall, 5 & 6 - posterior uterine wall, 7 - right fallopian tube, 8 - left fallopian tube. / SJ:rg 05/23/2023 TC:5 CPT: 04258
--- NOTE | 2023-05-23 07:35 | PCM.HP.BLA ---
History and Physical Date of Admission: 05/23/23 Intake Vital Signs 02/25/2316:21 05/12/2414:56 05/12/2414:57 Height 5 ft 7 in 5 ft 7 in 5 ft 7 in Weight: 175 lb BMI 27.3 BP 112/78 Intake Visit Reasons: TRHBS cysto Tip Bander Required: No Is patient in pain?: No Allergies No Known Allergies Allergy (Verified 05/12/23 15:56) Post menopausal: No Patient : No : No PFSH Medical History Abnormal mammogram of right breast Gastric reflux Surgical History History of ear surgery Family History Grandmother Diabetes Breast cancer Colon cancerGrandfather Colon cancerMother Colon cancerFather Heart disease Asthma Hypertension High cholesterolSister Asthma Social History Smoking Status: Never smoker alcohol intake: never substance use type: does not use caffeine: Yes what type of physical activity do you participate in: other details: peloton frequency: 1-2 times per week seatbelt use: always do you feel safe at home: Yes additional social history: Dpqdxbl-Ajfxl-Kqry/Landscape 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 ultrasound shows a 9 cm uterus and no fibroids or cysts. She was leaning toward an ablation but then states that she has persistent pelvic pain r>l and thinks she could have endometriosis based on discussion with prior providers. She also desires permanent sterilization and she wants to have a hysterectomy. Plan is for EMB today. EXAM: US PELVIS TRANSABDOMINAL AND TRANSVAGINAL, COMPLETE CLINICAL INDICATION: AUB TECHNIQUE: Transabdominal and transvaginal pelvic ultrasound was performed with grayscale and color Doppler imaging. Transvaginal imaging was used for better evaluation of the endometrium and adnexa. COMPARISON: No relevant prior studies available. FINDINGS: UTERUS/CERVIX: Nabothian cysts are identified. Anteverted. There is no uterine mass. The uterus measures 8.9 x 5.5 x 4.0 cm. The endometrial stripe measures 0.1 cm in thickness. RIGHT OVARY: No significant abnormality. Blood flow is present in the right ovary. The right ovary measures 2.5 x 2.2 x 2.0 cm. LEFT OVARY: No significant abnormality. Blood flow is present in the left ovary. The left ovary measures 2.8 x 1.9 x 1.4 cm. FREE FLUID: None. BLADDER: The urinary bladder appears normal. US/Pelvic w/ Transvaginal IMPRESSION: No acute findings in the pelvis. History 5 Elective abortions Hx Para 3 Spontaneous abortions 2 Hx # Term Pregnancies 3 Ectopic pregnancies Hx # Pregnancies Multiple births # of living children 3 Past Pregnancies Del. Date Name GA/Weeks Outcome Route Bth Weight Infant Gen Labor Lgth Anesthesia Del Locatn Provider FOB 02/01/11 Sharron 40 live - full term 9lbs 4oz Female 17 hours epidural [facility] Dr. Petra Soni 11/16/12 Emarie 40 live - full term 9lbs 3oz Female [address] [place] [address] David Soni 07/29/19 [place] 39 live - full term Male epidural [facility] SELINA Delivery Date: 02/01/11 Last Updated by: Amber Dennis No issues during or delivery. Delivery Date: 11/16/12 Last Updated by: Amber Dennis No issues during or delivery. Delivery Date: 07/29/19 Last Updated by: Uzma You IoL d/t macrosomia ROS Const ROS Unobtainable: All systems reviewed & are unremarkable except as noted in H Resp Resp: Reports system reviewed and no additional complaints, except as documented; Denies cough GI GI: Reports as per HPI Psych Psych: Reports system reviewed and no additional complaints, except as documented Exam Const General: cooperative, healthy appearing, comfortable and no acute distress Resp Effort & Inspection: normal respiratory effort Skin General: no rashes or lesions noted Psych Appearance: grossly normal Speech and Movement: speech and movement normal Coding Level of Care Code Off vis,est,level 4 Diagnoses Pelvic pain R10.2 Abnormal uterine bleeding (AUB) N93.9 Assessment and Plan Assessment and Plan (1) Pelvic pain: Status: Acute (2) Abnormal uterine bleeding (AUB): Status: Acute Comment: nuvaring Plan After discussing the patient's diagnosis and treatment plan options, patient wishes to proceed with surgical management. I have discussed with the patient the risks, benefits, and alternatives of the procedure which include but are not limited to risks of anesthesia, bleeding, infection, possible damage to bowel, bladder, or surrounding vasculature which could lead to additional surgery to evaluate any complications. Patient agrees to procedure and wishes to proceed. ACOG/uptodate references given for additional information regarding procedure. plan for total robotic hysterectomy, bilateral salpingectomy, cystoscopy. pt may have some endometriosis, will fulfurate if needed
[2023-05-23] MEDS: Cefazolin 2 GM in 0.9% Normal Saline (100mL Bag) 100 ML IV (07:36)
[2023-05-23] MEDS: Bupivacaine 0.25% 30 ML Vial (08:49)
--- NOTE | 2023-05-23 09:09 | PCM.OPRPT ---
Problems Associated Problem List Diagnoses (1) Pelvic pain: (2) Abnormal uterine bleeding (AUB): Report of Operation Date of Procedure: 05/23/23 Pre-Operative Diagnosis: pelvic pain, possible endometriosis, abnormal uterine bleeding Post-Operative Diagnosis: pelvic pain, abnormal uterine bleeding, findings consistent with pelvic congestion syndrome Surgery/Procedure Performed:: total robotic hysterectomy Description of Surgical Findings:: abnormally large and increased in quantity of uterine and ovarian vasculature, consistent with pelvic congestion syndrome, mildly enlarged uterus Surgeon: Yu Amanda director targeted marketing: Olvin Kim Type of Anesthesia: General Specimen's removed: uterus, cervix, fallopian tubes Drains: none Estimated Blood Loss (mL): 50 Fluids Replaced: 1700 Description of Procedure: Findings: 11 cm size uterus, normal appearing ovaries and tubes. Increased vasculature to the ovaries and uterus, consistent with pelvic congestion syndrome. On exploration of the abdominal cavity the uterus, adnexa, bowel, and liver were found to be normal. Cystoscopy showed no evidence of leaking at approximately 250 cc of normal saline, positive ureteral orifices and jet flow are seen and no suture material was appreciated in the bladder. Specimens removed: Uterus and cervix, Bilateral tubes Reason for surgery: This is a 37-year-old G3, P3 who presented to my office with history of pelvic pain and heavy vaginal bleeding during menses. She was told by a prior wafer substrate tester that she likely has endometriosis. The planned procedure is for a robotic hysterectomy the risks benefits and alternatives were discussed with the patient the patient had a clear understanding of the procedure and a consent form was signed. Procedure: The patient was placed in the dorsal low lithotomy position and prepped and draped in the normal sterile fashion both abdominally and in the perineum. Her legs were placed in stirrups a Quarles catheter was inserted into the urethra without difficulty. A weighted speculum was placed in the vagina and a single-tooth tenaculum was used to grasp the anterior lip of the cervix. An advincula uterine manipulator was inserted through the cervix without complication. It was then tied into place at the 2 and 10:00 locations on the cervix. Gloves were changed and attention was turned towards the abdomen. Approximately 23 cm above the pubic symphysis in the midline, and after Marcaine injection, a 8 mm incision was made. An 8 mm trocar was inserted through the laparoscope, then inserted into the abdomen under direct visualization using the laparoscope. Good abdominal placement was noted and no complications were appreciated. An air seal device was utilized to create pneumoperitoneum. At 12 cm lateral to the midline on the left and right sides 8 mm accessory ports were placed. Next a left upper quadrant 8 mm machine assistant port site was placed. The patient was placed in steep Trendelenburg position. The robot was docked. The hysterectomy was initiated first by taking down the round ligament on each side using the vessel sealer device. The fallopian tubes were grasped and the mesosalpinx was cauterized and cut. The broad ligament was then and taken down using the vessel sealer device. Next the bladder flap was taken down without complication. This was done using monopolar cautery to the level of the cervical vaginal junction. After the bladder flap was created, uterine vessels were then isolated and cauterized using the vessel sealer device and EndoShears. At this point the uterine vessels were taken down further starting from the ascending branch, dissecting along the edges of the cervix to the level of the cervical vaginal junction with hemostasis appreciated. The cervical vaginal junction was then using monopolar cautery in a circumferential pattern across the superior aspect of the cervix. The specimen was delivered through the vagina and sent to pathology. The remaining vaginal cuff was then closed using a V lock suture. This was performed in a running technique. Excellent hemostasis was obtained and good closure was noted. Irrigation was then performed. All operative sites were noted to be hemostatic. A cystoscopy was performed with a 70 degree cystoscope through the urethra into the bladder without complication. The bladder was instilled with approximately 250 cc of normal saline. Intraoperative images were made. Ureteral orifices and jets were identified. No suture material was appreciated in the bladder. The bladder was then drained and cystoscope was removed. The abdominal cavity was again examined using the laparoscope after the robot was undocked. All operative sites were noted to be hemostatic. The trochars were removed under direct visualization without complication and pneumoperitoneum was reduced. At this point the skin was then closed using 4-0 Monocryl subcuticular stitch and sealed with surgical glue. The patient tolerated the procedure well sponge lap and needle counts were correct x2 the patient was taken to the recovery room in stable condition. Procedure Start Time: 08:02 Procedure Stop Time: 09:15 Complications none Admit VTE Documentation VTE Present on Admission: No VTE Mechan Device Prophylaxis: SCD's VTE Pharm Prophylaxis ordered?: No Multi Select Codes Urinary/Genital Urinary/Genital CPT Codes: 60116 TLH+BS/O <250gr uterus
--- NOTE | 2023-05-23 09:21 | DCINST_ITS ---
Discharge Instructions Diet Discharge Diet: No restrictions Activity May resume sexual activity in: 6 weeks Weight Bearing Status: Full weight bearing Dressing / Incision Call your doctor if your incision/area has: Continuous Slow Oozing, Sudden Increased Bleeding, Increased Pain/ Swelling, Increased Redness and Foul Smelling Discharge Call your doctor if you observe: Fever of 101 or Higher, Using more than 1 pad per hour, Shortness of breath, Chest pain and Uncontrolled pain Suture Line Care: Avoid Pulling/Pushing and Avoid Pinching/Bending Remove Dressing in: 1 week (if present) Cleanse incision/area with: Soap & Water and Keep Dressing Clean & Dry Follow Up Care Please Follow Up With: Yu Amanda DO When: Call to make an appointment with your doctor for a postop visit in 2 and 6 weeks Test Results: Test results from this visit will be discussed in further detail at your follow- up appointment, if applicable. Discharge Plan Admission Primary Reason for Your Visit: robotic hysterectomy Attending Provider: Yu Amanda Primary Care Provider: Chata Matta Consulting Providers: Freddy Reardon Discharge Orders/Prescriptions Prescriptions: New oxycodone-acetaminophen [Percocet] 5-325 mg tablet 1 tab PO Q4H PRN (Reason: pain) 7 Days Qty: 20 0RF Rx Instructions: 1-2 tabs q 4 hrs as needed for pain naproxen 500 mg tablet 500 mg PO BID PRN (Reason: pain) Qty: 30 0RF Referrals / Follow Up: Care Physician,No Primary [Non-Staff] - Disposition Disposition (needs filled in before D/C Order can be placed): Home, Self Care
== END 2023-05-23 15:14 | disposition home or self-care (01) ==
LOC: SDC 05:14 → AC 05:14
PROVIDERS: Anesthesiology; PCP Physician Assistant Medical; Referring Provider Obstetrics & Gynecology; Visit Provider Obstetrics & Gynecology
PROC: 0UT90ZZ Resection of Uterus, Open Approach (ICD-10-PCS; CPT 58571; principal; 2023-05-23 07:10)
DX: N83.8 Other noninflammatory disorders of ovary, fallopian tube and broad ligament (principal); N80.03 Adenomyosis of the uterus; N88.8 Other specified noninflammatory disorders of cervix uteri; N93.9 Abnormal uterine and vaginal bleeding, unspecified
CPT/HCPCS: 58571; S2900; 00840; 36415; 80061; 81025; 82306; 82962; 83036; 83735; 84443; 85027; 86850; 86900; 86901; 88307; J7120; J2405; J3475

== ENCOUNTER → 2024-01-08 | Outpatient (CLI) | payer OTHER, SELFPAY ==
--- NOTE | 2024-01-08 09:50 | BI_ITS ---
MAMMOGRAPHY - BILATERAL SCREENING 3-D TOMOSYNTHESIS REASON FOR EXAM: Female, 38 years old. screening mammogram PERTINENT HISTORY: No significant family history. TECHNIQUE: 2-D mammograms and 3-D Tomosynthesis of the breast (s) were performed. CAD was performed. COMPARISON: 01/06/2023 FINDINGS: The breast composition is heterogeneously dense that can obscure small breast masses. Scattered benign calcifications are seen. No dense spiculated masses or suspicious microcalcifications are identified. No architectural distortion is identified. There is no skin thickening or retraction. There has been no significant change since the prior study. BI/SCRN MAMM (CAD)W/GRETCHEN BILAT IMPRESSION: No mammographic signs of malignancy. Routine yearly mammograms recommended. ASSESSMENT CATEGORY: BIRADS Category 1: Negative. A letter regarding these results will be sent to the patient by the facility within 30 days. FOLLOW UP RECOMMENDATION: Yearly follow up mammogram recommended. (A) Approximately 10% of breast cancers are not detected by mammography. A normal mammogram should not delay biopsy of a clinically suspicious abnormality. Electronically Signed: Mario Mayers MD at 15:07 EDT ,
== END | disposition home or self-care (01) ==
LOC: OPBI 09:50
PROVIDERS: PCP Physician Assistant Medical; Referring Provider Obstetrics & Gynecology; Visit Provider Obstetrics & Gynecology
DX: Z12.31 Encounter for screening mammogram for malignant neoplasm of breast (principal)
CPT/HCPCS: 77063; 77067

== ENCOUNTER → 2024-09-06 | Outpatient (CLI) | payer OTHER, SELFPAY ==
--- NOTE | 2024-09-06 10:29 | US_ITS ---
PROCEDURE: ABDOMEN LIMITED 09/06/2024 REASON FOR EXAM: ABD PAIN FINDINGS: The pancreas appears within limits without evidence of pancreatic ductal dilation. The liver measures 14.9 cm and appears within limits for echogenicity. No intrahepatic biliary ductal dilation seen. Hepatic color flow is present with a hepatopetal flow in the portal vein as expected. Gallbladder appears within limits without stones, wall thickening or pericholecystic free fluid. Wall measures 2 mm. Report of a negative sonographic Carmichael's sign. CBD 5 mm. The right kidney measures 10.9 x 4.4 x 4.6 cm with a cortical thickness of 0.9 cm without hydronephrosis, renal stone or perinephric edema seen. No free fluid seen. US/Abdomen Limited IMPRESSION: The study appears within limits as above. Reading Location: [id number]
== END | disposition home or self-care (01) ==
PROVIDERS: PCP Physician Assistant Medical; Referring Provider Student in an Organized Health Care Education/Training Program; Visit Provider Student in an Organized Health Care Education/Training Program
DX: R10.9 Unspecified abdominal pain (principal)
CPT/HCPCS: 76705

== ENCOUNTER 2024-10-04 09:39 | Day surgery (SDC) | payer OTHER, SELFPAY ==
[2024-10-04] VITALS (8 sets, daily range): BP systolic 100–131; BP diastolic 62–76; PULSE 70–97; RESP 16; TEMP 36.1–36.7; O2SAT 100; BMI 26.4
--- NOTE | 2024-10-04 09:50 | PRE.ANES_ITS ---
ASA Classification* ASA Classification ASA Classification: 2 Assessment & Plan Anesthesia* Anesthesia Assessment Anesthesia Assessment: Discussed sedation and/or anesthesia options, risks, benefits, and alternatives with patient/parents/legal guardian/POA. Questions invited. The patient/parents/legal guardian/POA seems to understand and agrees to proceed with anesthesia plan. Reviewed the physical assessment, medical history, allergy history and patient home medications list prior to surgery/procedure/anesthetic and documented any changes. Performed airway and anesthesia risk assessments. Anesthesia Type Anesthesia Type: MAC Anesthesia Focused Assessment* Airway Assessment Mouth opens: >3 cm Mallampati Score: II Focused Labs Anesthesia Preop lab: CBC WBC 5.3 K/mm3 (4.4-11.0) 05/15/23 10:05 05/15/23 RBC 4.10 M/mm3 (4.2-5.4) L 05/15/23 10:05 05/15/23 Hgb 12.4 g/dL (12.0-15.0) 05/15/23 10:05 05/15/23 Hct 37.7 % (37-47) 05/15/23 10:05 05/15/23 Plt Count 230 K/mm3 (150-450) 05/15/23 10:05 05/15/23 CHEMISTRY Magnesium 2.2 mg/dL (1.6-2.6) 05/15/23 10:05 05/15/23 POC Glucose 77 mg/dL (74-106) 05/23/23 05:55 05/23/23 TSH 1.02 uIU/mL (0.358-3.74) 05/15/23 10:20 COAG Urine Test Negative Negative 05/23/23 05:35 05/23/23 Tst Clinic Negative 02/24/23 17:02 02/24/23 Pre-Assessment Diagnosis/Proposed Procedure Planned Operative Procedure(s): EGD, CSCOPE Anesthesia History Anesthesia History - senior client advisor: Anesthesia History - senior client advisor Hx Hospitalization No 10/03/24 13:41 Any Problems With Anesthesia No 10/03/24 13:41 Cholinesterase deficiency No 10/03/24 13:41 You/Your Family Experience No 10/03/24 13:41 fever (hyperthermia) with Relationship Recent Exposure to Contagious No 05/23/23 05:52 Disease Does patient have nerve No 10/03/24 13:41 stimulator Patient instructed to have device shut off --Does patient have Pacemaker or ICD? When Was Last Pacemaker Check QUESTION #4 FULL TEXT: You/Your Family Experience fever (hyperthermia) with Anesthesia Last Oral Intake Last Oral intake: Last Oral Intake NPO since Meds taken in AM with sips of water? Meds patient instructed to take am of surgery PONV PONV - senior client advisor: PONV - senior client advisor Female Yes 10/03/24 13:41 HX of Motion Sickness No 10/03/24 13:41 HX of N/V After Surgery No 10/03/24 13:41 Non-Smoker Yes 10/03/24 13:41 Duration of Surgery greater No 10/03/24 13:41 than 60 minutes Number of Risk Factors 2 10/03/24 13:41 PONV Score Moderate Risk 10/03/24 13:41 Height & Weight Height & Weight: Anesthesia: Height & Weight Height 5 ft 7 in 07/03/23 10:36 Respiratory Assessment Respiratory Assessment - senior client advisor: Respiratory Tract Infection Hx - senior client advisor Hx Respiratory Tract Infection No 10/03/24 13:41 STOP Sleep Apnea STOP Sleep Apnea - senior client advisor: STOP Sleep Apnea - senior client advisor Hx Hypertension No 10/03/24 13:41 Hx Sleep Apnea No 10/03/24 13:41 CPAP BIPAP Do you snore loudly (louder No 10/03/24 13:41 than talking or can be heard Do you often feel tired/ No 10/03/24 13:41 fatigued/ sleepy during daytime? Has anyone observed you stop No 10/03/24 13:41 breathing during sleep? STOP Results Negative 10/03/24 13:41 QUESTION #5 FULL TEXT : Do you snore loudly (louder than talking or can be heard through closed doors)? 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 Specify any problems Hx of Preganancy in last 3 N/A 10/03/24 13:41 Months Nurse Filling Out Transfusion NBUCHER 10/03/24 13:41 & Questions: Date: 10/03/24 10/03/24 13:41 Time: 13:42 10/03/24 13:41 Patient unable to answer at this time (ie. confused, unrespo /Reproduction History /Reproductive History - senior client advisor: /Reproductive Hx- senior client advisor Hx Now No 10/03/24 13:41 Gestational Age (in weeks): EDC: Hx Hx Para Hx Section SAB No 10/03/24 13:41 [facility] Medical History Non-smoker Genetic testing Gastric reflux Pelvic pain Contraception management Abnormal uterine bleeding (AUB) Abnormal mammogram of right breast Home Medications ?Medication ?Instructions ?Recorded ?Last Taken ?Type pantoprazole 40 mg tablet,delayed 40 mg PO QDAY #30 ta bs 09/02/24 Unknown Rx release Allergy/AdvReac Type Severity Reaction Status Date / Time No Known Allergies Allergy Verified 10/03/24 13:41 Family History Grandmother Diabetes Breast cancer Colon cancer Grandfather Colon cancer Mother Colon cancer Father Heart disease Asthma Hypertension High cholesterol Sister Asthma Surgical History History of colonoscopy Status post hysterectomy History of ear surgery Social History Smoking Status: Never smoker alcohol intake: never substance use type: does not use caffeine: Yes what type of physical activity do you participate in: other details: peloton frequency: 1-2 times per week seatbelt use: always do you feel safe at home: Yes additional social history: [employer]/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
[2024-10-04] MEDS: Lactated Ringers 1,000 ML 15 ML IV (10:05)
--- NOTE | 2024-10-04 10:45 | EGD_PTH ---
PATIENT: JUNIOR PATEL LOC: EN U#:[id number] AGE/SX: 38/F ROOM: RE10/04/[address]: Dr. Luis Mireles DO : 1985 BED: DIS: 10/04/2024 SPEC #: [id number] RECD: 10/04/24 13:40 STATUS: JAYDE NICOLE #: [id number] DARBY: 10/04/24 10:[address]: Luis Mireles DEPT: SURGICAL PATHOLOGY RECD BY: Harshil Mcbride ENTERED: 10/04/24 13:54 SP TYPE: EGD BIOPSY MADDIE DR: QUINCY Campbell Tissues: A - Esophagus, NOS B - Sigmoid colon biopsy C - SPLENIC FLEXURE Procedures: Surgery Specimen Level IV HEADER OPERATION: Colonoscopy, EGD, biopsy PRE-OP DIAGNOSIS: Family history of colon cancer, Siegel's esophagus, GERD TISSUE SUBMITTED: A- Distal esophagus biopsy, B- Sigmoid polyp, C- Splenic flexure polyp MICROSCOPIC DIAGNOSIS A. Esophagus, distal, biopsy: Siegel mucosa negative for dysplasia. B. Sigmoid colon, polyp, biopsy: Hyperplastic polyp. C. Colon, splenic flexure, polyp, biopsy: Tubular adenoma. Hyperplastic polyp. MICROSCOPIC DESCRIPTION Slides are reviewed. GROSS DESCRIPTION A. Received in formalin in a container labeled with the patient's name, date of , and distal esophagus are 2 white-pink fragments of mucosal tissue each measuring 0.5 x 0.3 x 0.3 cm. Submitted in toto in A1. B. Received in formalin in a container labeled with the patient's name, date of , and sigmoid polyp is a 0.3 x 0.3 x 0.3 cm fragment of may-pink mucosal tissue. Submitted in toto in B1. C. Received in formalin in a container labeled with the patient's name, date of , and splenic flexure polyp are 2 may-pink fragments of mucosal tissue measuring 0.3 x 0.3 x 0.2 cm and 0.5 x 0.3 x 0.2 cm. Submitted in toto in C1. [facility] 10-04-2024 CPT:62138y5
--- NOTE | 2024-10-04 11:43 | PCM.HP.STD ---
[facility] - General General Date of Admission: 10/04/24 Date of Service: 10/04/24 Chief Complaint: Siegel's esophagus and family history of colon cancer [facility] Narrative JUNIOR PATEL, is a 38 F who presents today for upper lower endoscopy. She has a past viral history of gastroesophageal reflux disease complicated by Siegel's esophagus and a strong family history of colon cancer. She comes in for screening colonoscopy and surveillance endoscopy. [facility] Medical History Non-smoker Genetic testing Gastric reflux Pelvic pain Contraception management Abnormal uterine bleeding (AUB) Abnormal mammogram of right breast Home Medications ?Medication ?Instructions ?Recorded ?Last Taken ?Type pantoprazole 40 mg tablet,delayed 40 mg PO QDAY #30 tabs 09/02/24 Unknown Rx release Allergy/AdvReac Type Severity Reaction Status Date / Time No Known Allergies Allergy Verified 10/04/24 10:02 Family History Grandmother Diabetes Breast cancer Colon cancer Grandfather Colon cancer Mother Colon cancer Father Heart disease Asthma Hypertension High cholesterol Sister Asthma Surgical History History of colonoscopy Status post hysterectomy History of ear surgery Social History Smoking Status: Never smoker alcohol intake: never substance use type: does not use caffeine: Yes what type of physical activity do you participate in: other details: peloton frequency: 1-2 times per week seatbelt use: always do you feel safe at home: Yes additional social history: [employer]/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 Constitutional Constitutional: Denies fatigue, fever(s), poor appetite, weight gain or weight loss Gastrointestinal Gastrointestinal: Denies belching, bloating, change in bowel habits, change in stool character, chewing difficulty, coffee ground emesis, constipation, cramping, diarrhea, dyspepsia, dysphagia, early satiety, excessive flatus, fecal incontinence, heartburn, hematemesis, hematochezia, hemorrhoids, loose stools, melena, nausea, odynophagia, rectal bleeding, tenesmus, vomiting or weight changes Vital Signs Vital Signs Vital Signs: 10/04/24 10:06 10/04/24 10:06 Temperature 97 F L Temperature Source Temporal Pulse Rate 91 Respiratory Rate 16 Respiratory Pattern Normal Blood Pressure 131/76 H Blood Pressure Mean 94 Blood Pressure Source Monitor Blood Pressure Position Semi-Fowlers Blood Pressure Location Right Arm Pulse Ox 100 Oxygen Delivery Method Room Air Weight Weight: 168 lb 6.931 oz Body Mass Index (BMI) 26.4 Physical Exam Const alert, oriented x3, no apparent distress and healthy appearing General Appearance: cooperative GI normal to inspection, nondistended, normoactive bowel sounds, soft to palpation, non-tender and non-distended Percussion: normal to percussion Rectal Exam: deferred Assessment & Plan Assessment/Plan (1) Family hx of colon cancer: (2) Siegel esophagus: (3) GERD (gastroesophageal reflux disease): PLAN: She will undergo an upper or lower endoscopy. She was explained alternatives, risk and benefits include not withstanding bleeding, infection, sepsis, perforation, need for surgery . She will have an ASA 3.
--- NOTE | 2024-10-04 11:45 | OP.EGD_ITS ---
Patient Name: Angelique Boo Procedure Date: 10/04/2024 10:50 AM Date of : 1985 Age: 38 THIS EXAM WAS SENT IN ERROR
--- NOTE | 2024-10-04 11:46 | OP.CCLET_ITS ---
Patient Name: Angelique Boo Procedure Date: 10/04/2024 10:50 AM Date of : 1985 Age: 38 THIS EXAM WAS SENT IN ERROR THIS EXAM WAS SENT IN ERROR
--- NOTE | 2024-10-04 12:44 | PCM.POST.ANE ---
Anesthesia: Postop Eval I Current Vital Signs Temperature: 97.6 F Pulse Rate: 97 Blood Pressure: 105/62 Respiratory Rate: 16 Pulse Ox: 100 Oxygen Delivery Method: Room Air Assessment Airway patent: Yes Spontaneous unlabored respirations: Yes Mental status: Awake and Calm nausea: No Vomiting: No Anesthesia Complication: No Fluid Hydration Crystalloid volume administer (ml): 900 Total IV fluid infused: 900 Progress Note Anesthesia document: Postop Eval 1 completed: Yes
--- NOTE | 2024-10-04 12:46 | OP.COLON_ITS ---
Patient Name: Angelique Boo Procedure Date: 10/04/2024 12:14 PM Date of : 1985 Age: 38 Procedure: Colonoscopy Indications: Family history of colon cancer in multiple first-degree relatives Providers: Luis Mireles DO Medicines: Monitored Anesthesia Care Patient Profile: This is a 38 year old female. Refer to note in patient chart for documentation of history and physical. Patient has symptoms of chronic epigastric abdominal pain, chronic dyspepsia, chronic nausea and chronic throat burning. Last Colonoscopy: 3 years ago. Complications: No immediate complications. Procedure: Pre-Anesthesia Assessment: - Prior to the procedure, a History and Physical was performed, and patient medications and allergies were reviewed. The patient is competent. The risks and benefits of the procedure and the sedation options and risks were discussed with the patient. All questions were answered and informed consent was obtained. Patient identification and proposed procedure were verified by the physician in the pre-procedure area. Mental Status Examination: alert and oriented. Airway Examination: normal oropharyngeal airway and neck mobility. Respiratory Examination: clear to auscultation. CV Examination: normal. Prophylactic Antibiotics: The patient does not require prophylactic antibiotics. Prior Anticoagulants: The patient has taken no anticoagulant or antiplatelet agents except for NSAID medication. ASA Grade Assessment: II - A patient with mild systemic disease. After reviewing the risks and benefits, the patient was deemed in satisfactory condition to undergo the procedure. The anesthesia plan was to use monitored anesthesia care (MAC). Immediately prior to administration of medications, the patient was re-assessed for adequacy to receive sedatives. The heart rate, respiratory rate, oxygen saturations, blood pressure, adequacy of pulmonary ventilation, and response to care were monitored throughout the procedure. The physical status of the patient was re-assessed after the procedure. After I obtained informed consent, the scope was passed under direct vision. Throughout the procedure, the patient's blood pressure, pulse, and oxygen saturations were monitored continuously. The colonoscope was introduced through the anus and advanced to the terminal ileum. The colonoscopy was performed without difficulty. The patient tolerated the procedure well. The quality of the bowel preparation was adequate. The ileocecal valve, appendiceal orifice, and rectum were photographed. Scope In: 12:15:50 PM Scope Withdrawal Time 0 hours 9 minutes 56 seconds Scope Out: 12:33:21 PM Total Procedure Duration Time 0 hours 17 minutes 31 seconds Findings: The perianal and digital rectal examinations were normal. Three sessile polyps were found in the sigmoid colon and transverse colon. The polyps were 8 mm in size. These polyps were removed with a jumbo cold forceps. Resection and retrieval were complete. Verification of patient identification for the specimen was done. Estimated blood loss was minimal. The exam was otherwise without abnormality on direct and retroflexion views. Impression: - Three 8 mm polyps in the sigmoid colon and in the transverse colon, removed with a jumbo cold forceps. Resected and retrieved. - The examination was otherwise normal on direct and retroflexion views. Recommendation: - Discharge patient to home. - Resume previous diet. - Continue present medications. - Await pathology results. - Repeat colonoscopy in 5 years for surveillance. Procedure Code(s): --- Professional --- 87170, Colonoscopy, flexible; with biopsy, single or multiple CPT copyright 2021 [employer]. All rights reserved. The codes documented in this report are preliminary and upon wooden box maker review may be revised to meet current compliance requirements. Luis Mireles DO 10/04/2024 12:45:50 PM This report has been signed electronically. Number of Addenda: 0 Note Initiated On: 10/04/2024 12:14 PM
--- NOTE | 2024-10-04 12:46 | OP.CCLET_ITS ---
10/04/2024 Frantz Campbell Re : Colonoscopy procedure for Angelique Boo Dear [place] This procedure was performed on Friday, October 04, 2024. My impressions and recommendations are as follows: Impressions : - Three 8 mm polyps in the sigmoid colon and in the transverse colon, removed with a jumbo cold forceps. Resected and retrieved. - The examination was otherwise normal on direct and retroflexion views. Recommendations : - Discharge patient to home. - Resume previous diet. - Continue present medications. - Await pathology results. - Repeat colonoscopy in 5 years for surveillance. My findings are described in the full procedure note, which is enclosed. If I can be of further assistance, please feel free to contact me at . Sincerely, Luis Friend, 10/04/2024 12:45:50 PM This report has been signed electronically.
--- NOTE | 2024-10-04 13:38 | PCM.POSTANE2 ---
Anesthesia Postop Eval I Sum Postop Eval Completion status Anesthesia document: Postop Eval 1 completed: Yes Anesthesia Postop Eval I Summary Anesthesia Postop Eval I Summary: Anesthesia Postop Eval I: Assessment Summary Airway patent Yes 10/04/24 12:45 [email or web address] Spontaneous unlabored Yes 10/04/24 12:45 [email or web address] respirations Mental status Awake,Calm 10/04/24 12:45 [email or web address] nausea No 10/04/24 12:45 [email or web address] Vomiting No 10/04/24 12:45 [email or web address] Anesthesia Postop Eval I: Fluid Summary Crystalloid volume administer 900 10/04/24 12:45 [email or web address] (ml) Colloids volume administered ( ml) Blood Product volume administered (ml) Total IV fluid infused 900 10/04/24 12:45 [email or web address] Anesthesia Postop Eval I: Summary Notes Anesthesia Complication No 10/04/24 12:45 [email or web address] Anesthesia Complication Comment: Post-operative progress note Anesthesia: Postop Eval II Evaluation Mental status: Awake Pain Level: 0 nausea: No Vomiting: No
== END 2024-10-04 13:29 | disposition home or self-care (01) ==
LOC: EN 09:41 → AC 09:43
PROVIDERS: PCP Physician Assistant Medical; Referring Provider Physician Assistant Medical; Visit Provider Internal Medicine Gastroenterology
PROC: 0DJD8ZZ Inspection of Lower Intestinal Tract, Via Natural or Artificial Opening Endoscopic (ICD-10-PCS; CPT 45378; principal; 2024-10-04 10:40)
DX: Z12.11 Encounter for screening for malignant neoplasm of colon (principal); K44.9 Diaphragmatic hernia without obstruction or gangrene; K22.70 Barrett's esophagus without dysplasia; K63.5 Polyp of colon; Z90.710 Acquired absence of both cervix and uterus; Z80.0 Family history of malignant neoplasm of digestive organs; K21.9 Gastro-esophageal reflux disease without esophagitis; Z79.899 Other long term (current) drug therapy; K22.89 Other specified disease of esophagus
CPT/HCPCS: 45380; 43239; 88305; J2405